=== PATIENT | male | born 1965 | race Caucasian/White ===

== ENCOUNTER 2017-06-16 16:30 | Emergency (ER) | payer MEDICAID ==
[~2017-06-16] VITALS: Ht 182.9 cm; Wt 95.0 kg
[~2017-06-16 16:30] MED LIST: LISI5TAB7 PO
[2017-06-16] MEDS ORDERED: LISI-167 PO (17:03)
[2017-06-16 17:49] VITALS: BP 165/104
== END 2017-06-16 17:54 | disposition home or self-care (01) ==
LOC: ED 17:46
DX: F15.10 Other stimulant abuse, uncomplicated (principal); Z72.9 Problem related to lifestyle, unspecified
CPT/HCPCS: 93005; 99283

== ENCOUNTER 2017-12-02 10:16 | Emergency (ER) | payer MEDICAID ==
[~2017-12-02] VITALS: Ht 182.9 cm; Wt 95.0 kg
[~2017-12-02 10:16] MED LIST changes: +LISI-167 PO
[2017-12-02] MEDS ORDERED: SODIUM CHLORIDE FLUSH 10ML SYR IVF ONE (11:00)
[2017-12-02] MEDS ORDERED: LORazepam 2 MG/ML, 1ML IVPush ONE ×2 (11:00→13:30)
[2017-12-02] MEDS ORDERED: ENALAPRILAT 1.25 MG/ML, 2ML IV ONE (11:00)
[2017-12-02] MEDS ORDERED: SODIUM CHLORIDE 0.9% 1,000ML IVBOLUS ONE (11:00)
[2017-12-02] MEDS ORDERED: THIAMINE 100 MG in SODIUM CHLORIDE 0.9% 50 ML IVPB ONE (11:00)
[2017-12-02] MEDS ORDERED: ENALAPRILAT 1.25 MG/ML, 2ML ONE (11:17)
[2017-12-02 11:24] LABS: BASOPHILS # (AUTO) 0.03 x10^3/uL (0-0.1); BASOPHILS % (AUTO) 0 % (0-1); EOSINOPHILS % (AUTO) 1 % (1-7); LYMPHOCYTES # (AUTO) 1.12 x10^3/uL (1-3.4); LYMPHOCYTES % (AUTO) 14 % (22-44); MD NO; MEAN CORPUSCULAR HGB CONC 34.5 g/dL (33.2-36.2); MEAN CORPUSCULAR VOLUME 95.8 fL (81-97); MEAN PLATELET VOLUME 9.2 fL (7.4-10.4); MONOCYTES # (AUTO) 0.51 x10^3/uL (0.2-0.8); MONOCYTES % (AUTO) 6 % (2-9); NEUTROPHILS # (AUTO) 6.45 x10^3/uL (1.8-6.8); NEUTROPHILS % (AUTO) 79 % (42-75); PLATELET COUNT 153 x10^3/uL (130-400); RED BLOOD COUNT 3.98 x10^6/uL (4.38-5.82); RED CELL DISTRIBUTION WIDTH 13.8 % (9.4-14.8)
[2017-12-02] MEDS ORDERED: LORazepam 2 MG/ML, 1ML ONE ×2 (11:32→13:18)
[2017-12-02 11:35] LABS: ALANINE AMINOTRANSFERASE 13 U/L (12-78); ALBUMIN 3.8 g/dL (3.4-5.0); ANION GAP 7 mmol/L (5-15); CALCIUM 8.7 mg/dL (8.5-10.1); CHLORIDE 108 mmol/L (98-107)
[2017-12-02 11:37] LABS: CREATININE 1.29 mg/dL (0.7-1.3)
[2017-12-02 11:38] LABS: ALKALINE PHOSPHATASE 72 U/L (45-117); BILIRUBIN,TOTAL 0.5 mg/dL (0.2-1.0); TOTAL PROTEIN 7.2 g/dL (6.4-8.2)
[2017-12-02] MEDS ORDERED: LABETALOL 5MG/ML, 20ML ONE (13:17)
[2017-12-02] MEDS ORDERED: LABETALOL 5MG/ML, 20ML IVPush ONE (13:30)
[2017-12-02] MEDS ORDERED: LORazepam 1MG TABLET ONE (13:54)
[2017-12-02] MEDS ORDERED: PLEASE ENTER ALLERGIES MC SCH (14:00)
[2017-12-02] MEDS ORDERED: LORazepam 1MG TABLET PO ONE (14:00)
[2017-12-02 14:08] VITALS: BP 170/95
== END 2017-12-02 14:14 | disposition home or self-care (01) ==
LOC: ED 10:56
DX: R56.9 Unspecified convulsions (principal); I10 Essential (primary) hypertension; F10.239 Alcohol dependence with withdrawal, unspecified
CPT/HCPCS: 36415; 80053; 80307; 83735; 85025; 93005; 96365; 96375; 96376; 99285; J2060; J3411; J7030

== ENCOUNTER 2018-09-04 13:18 | Emergency (ER) | payer MEDICAID ==
[~2018-09-04] VITALS: Ht 182.9 cm; Wt 103.1 kg
[2018-09-04 13:34] VITALS: BP 157/95
[2018-09-04 14:09] LABS: BASOPHILS # (AUTO) 0.03 x10^3/uL (0-0.1); BASOPHILS % (AUTO) 1 % (0-1); EOSINOPHILS % (AUTO) 3 % (1-7); LYMPHOCYTES # (AUTO) 2.04 x10^3/uL (1-3.4); LYMPHOCYTES % (AUTO) 30 % (22-44); MD NO; MEAN CORPUSCULAR HEMOGLOBIN 31.8 pg (27.5-34.5); MEAN CORPUSCULAR HGB CONC 34.3 g/dL (33.2-36.2); MEAN CORPUSCULAR VOLUME 92.6 fL (81-97); MEAN PLATELET VOLUME 9.8 fL (7.4-10.4); MONOCYTES # (AUTO) 0.47 x10^3/uL (0.2-0.8); MONOCYTES % (AUTO) 7 % (2-9); NEUTROPHILS % (AUTO) 59 % (42-75); PLATELET COUNT 172 x10^3/uL (130-400); RED BLOOD COUNT 4.46 x10^6/uL (4.38-5.82); RED CELL DISTRIBUTION WIDTH 13.9 % (9.4-14.8)
[2018-09-04] MEDS ORDERED: KETOROLAC 30 MG/1 ML IM ONE (14:30)
[2018-09-04] MEDS ORDERED: KETOROLAC 30 MG/1 ML ONE (14:32)
[2018-09-04] MEDS ORDERED: TRAZODONE (14:45)
[2018-09-04] MEDS ORDERED: HYDROXYZINE (14:45)
[2018-09-04] MEDS ORDERED: LEVOTHYROXINE (14:45)
[2018-09-04] MEDS ORDERED: TAMS0.4C2 PO (14:45)
[2018-09-04] MEDS ORDERED: PROPRANOLOL (14:45)
== END 2018-09-04 15:25 | disposition home or self-care (01) ==
LOC: ED 13:30
DX: M13.132 Monoarthritis, not elsewhere classified, left wrist (principal); M13.142 Monoarthritis, not elsewhere classified, left hand; M10.9 Gout, unspecified; I10 Essential (primary) hypertension
CPT/HCPCS: 36415; 73130; 84550; 85025; 96372; 99285; J1885

== ENCOUNTER 2018-09-21 18:01 | Emergency (ER) | payer MEDICAID ==
[~2018-09-21] VITALS: Ht 180.3 cm; Wt 99.0 kg
[~2018-09-21 18:01] MED LIST changes: +HYDROXYZINE; +LEVOTHYROXINE; +PROPRANOLOL; +TAMS0.4C2 PO; +TRAZODONE
[2018-09-21 18:37] LABS: BASOPHILS # (AUTO) 0.04 x10^3/uL (0-0.1); BASOPHILS % (AUTO) 1 % (0-1); EOSINOPHILS # (AUTO) 0.23 x10^3/uL (0-0.4); EOSINOPHILS % (AUTO) 3 % (1-7); LYMPHOCYTES # (AUTO) 2.69 x10^3/uL (1-3.4); LYMPHOCYTES % (AUTO) 37 % (22-44); MD NO; MEAN CORPUSCULAR HEMOGLOBIN 31.8 pg (27.5-34.5); MEAN CORPUSCULAR HGB CONC 34.4 g/dL (33.2-36.2); MEAN CORPUSCULAR VOLUME 92.5 fL (81-97); MEAN PLATELET VOLUME 10.4 fL (7.4-10.4); MONOCYTES # (AUTO) 0.73 x10^3/uL (0.2-0.8); MONOCYTES % (AUTO) 10 % (2-9); NEUTROPHILS # (AUTO) 3.58 x10^3/uL (1.8-6.8); NEUTROPHILS % (AUTO) 49 % (42-75); PLATELET COUNT 150 x10^3/uL (130-400); RED BLOOD COUNT 4.38 x10^6/uL (4.38-5.82); RED CELL DISTRIBUTION WIDTH 13.7 % (9.4-14.8)
[2018-09-21 18:45] LABS: ALANINE AMINOTRANSFERASE 20 U/L (12-78); ALBUMIN 4.8 g/dL (3.4-5.0); ANION GAP 10 mmol/L (5-15); CALCIUM 9.3 mg/dL (8.5-10.1); CHLORIDE 104 mmol/L (98-107); CREATININE 2.07 mg/dL (0.7-1.3)
[2018-09-21 18:47] LABS: ALKALINE PHOSPHATASE 72 U/L (45-117); BILIRUBIN,TOTAL 0.6 mg/dL (0.2-1.0); TOTAL PROTEIN 8.2 g/dL (6.4-8.2)
[2018-09-21 19:33] VITALS: BP 139/86
== END 2018-09-21 19:34 | disposition home or self-care (01) ==
LOC: ED 19:05
DX: R79.9 Abnormal finding of blood chemistry, unspecified (principal); Z00.01 Encounter for general adult medical examination with abnormal findings
CPT/HCPCS: 36415; 80053; 85025; 93005; 99285

== ENCOUNTER 2019-04-27 20:54 | Emergency (ER) | payer MEDICAID ==
[~2019-04-27] VITALS: Ht 182.9 cm; Wt 93.0 kg
--- NOTE | 2019-04-27 21:05 | NUR ---
SELVIN. REPORT RECEIVED FROM EMS. PT C/O DZY/LIGHT HEADED X 3 DAYS. PT STATES HE HAS SOME RED SPOTS ON FOREHEAD. PT DID CPR(MOUTH TO MOUTH RESUSCITATION) FOR HOMELESS FOR 4 DAYS AGO. PT DENIES ANY PAIN AT THIS TIME. ALL MONITORS IN PLACE. CALL LIGHT WITHIN REACH.
[2019-04-27] MEDS ORDERED: SODIUM CHLORIDE FLUSH 10ML SYR IVF ONE (21:30)
[2019-04-27] MEDS ORDERED: SODIUM CHLORIDE 0.9% 1,000ML IVBOLUS ONE (21:30)
--- NOTE | 2019-04-27 21:36 | NUR ---
NS INFUSING AT THIS TIME. EKG DONE BY EMT AT BEDSIDE.
[2019-04-27] MEDS ORDERED: NALT50TA PO (21:39)
[2019-04-27] MEDS ORDERED: ATOR-2 PO (21:39)
[2019-04-27] MEDS ORDERED: ALLO300T PO (21:40)
[2019-04-27 21:50] LABS: BASOPHILS # (AUTO) 0.02 x10^3/uL (0-0.1); BASOPHILS % (AUTO) 0 % (0-1); EOSINOPHILS % (AUTO) 3 % (1-7); LYMPHOCYTES # (AUTO) 2.96 x10^3/uL (1-3.4); LYMPHOCYTES % (AUTO) 44 % (22-44); MD NO; MEAN CORPUSCULAR HEMOGLOBIN 31.1 pg (27.5-34.5); MEAN CORPUSCULAR VOLUME 94.2 fL (81-97); MEAN PLATELET VOLUME 8.7 fL (7.4-10.4); MONOCYTES # (AUTO) 0.37 x10^3/uL (0.2-0.8); MONOCYTES % (AUTO) 5 % (2-9); NEUTROPHILS # (AUTO) 3.23 x10^3/uL (1.8-6.8); NEUTROPHILS % (AUTO) 48 % (42-75); PLATELET COUNT 185 x10^3/uL (130-400); RED BLOOD COUNT 4.64 x10^6/uL (4.38-5.82); RED CELL DISTRIBUTION WIDTH 13.4 % (9.4-14.8)
[2019-04-27 21:58] LABS: INTERNATIONAL NORMALIZED RATIO 1.07 (0.93-1.1); PROTHROMBIN TIME 11.2 Seconds (9.6-11.5)
[2019-04-27 21:59] LABS: ALANINE AMINOTRANSFERASE 23 U/L (12-78); ALBUMIN 3.8 g/dL (3.4-5.0); ANION GAP 6 mmol/L (5-15); CALCIUM 8.4 mg/dL (8.5-10.1); CHLORIDE 106 mmol/L (98-107)
[2019-04-27 22:01] LABS: ALKALINE PHOSPHATASE 85 U/L (45-117); BILIRUBIN,TOTAL 0.4 mg/dL (0.2-1.0); TOTAL PROTEIN 6.8 g/dL (6.4-8.2)
--- NOTE | 2019-04-27 22:15 | NUR ---
PT AMB TO BR WITH STEADY GAIT.
[2019-04-27 23:56] VITALS: BP 117/73
--- NOTE | 2019-04-27 23:57 | NUR ---
PT GIVEN DC INSTRUCTIONS. PT'S AOX4. RESPS EVEN AND UNLABORED. NO ACUTE DISTRESS AT DC.
== END 2019-04-27 23:58 | disposition home or self-care (01) ==
LOC: ED 21:51
DX: F10.220 Alcohol dependence with intoxication, uncomplicated (principal); R42 Dizziness and giddiness; I10 Essential (primary) hypertension; F17.200 Nicotine dependence, unspecified, uncomplicated; Z72.9 Problem related to lifestyle, unspecified; Y90.9 Presence of alcohol in blood, level not specified
CPT/HCPCS: 36415; 70450; 80053; 80307; 85025; 85610; 85730; 93005; 96360; 99284; J7030

== ENCOUNTER 2019-07-07 21:30 | Emergency (ER) | payer MEDICAID ==
[~2019-07-07] VITALS: Ht 182.9 cm; Wt 97.3 kg
[2019-07-07 21:32] VITALS: BP 183/110
== END 2019-07-07 23:41 | disposition home or self-care (01) ==
LOC: ED 22:48
DX: S93.602A Unspecified sprain of left foot, initial encounter (principal); I10 Essential (primary) hypertension; X50.1XXA Overexertion from prolonged static or awkward postures, initial encounter; Y93.89 Activity, other specified; Y92.410 Unspecified street and highway as the place of occurrence of the external cause; Y99.8 Other external cause status
CPT/HCPCS: 99283

== ENCOUNTER 2020-04-28 19:06 | Emergency (ER) | payer MEDICAID ==
[~2020-04-28] VITALS: Ht 182.9 cm; Wt 95.5 kg
[~2020-04-28 19:06] MED LIST changes: +ALLO300T PO; +ATOR-2 PO; +NALT50TA PO
[2020-04-28 19:14] VITALS: BP 130/54
== END 2020-04-28 20:07 | disposition home or self-care (01) ==
LOC: ED 19:15
DX: F10.129 Alcohol abuse with intoxication, unspecified (principal); I10 Essential (primary) hypertension; M19.90 Unspecified osteoarthritis, unspecified site; Y90.9 Presence of alcohol in blood, level not specified
CPT/HCPCS: 99283

== ENCOUNTER 2020-11-30 06:51 | Emergency (ER) | payer MEDICAID ==
[~2020-11-30] VITALS: Ht 182.9 cm; Wt 99.4 kg
[2020-11-30 06:55] VITALS: BP 141/93
== END 2020-11-30 07:37 | disposition home or self-care (01) ==
LOC: ED 07:25
DX: H60.313 Diffuse otitis externa, bilateral (principal); H60.13 Cellulitis of external ear, bilateral; R09.81 Nasal congestion; I10 Essential (primary) hypertension; M19.90 Unspecified osteoarthritis, unspecified site
CPT/HCPCS: 99283

== ENCOUNTER 2020-12-03 16:16 | Emergency (ER) | payer MEDICAID ==
[~2020-12-03] VITALS: Ht 185.4 cm; Wt 95.4 kg
--- NOTE | 2020-12-03 17:30 | NUR ---
BP CUFF, PULSE OX IN PLACE. VSS/UPDATED IN COMPUTER.
--- NOTE | 2020-12-03 17:46 | NUR ---
DR WANG IN TO SEE PT.
--- NOTE | 2020-12-03 18:08 | NUR ---
REPORT TO ELIANA, TRANSFER OF CARE AT THIS TIME.
[2020-12-03 18:18] LABS: MEAN CORPUSCULAR HEMOGLOBIN 32.8 pg (27.5-34.5); PLATELET COUNT 339 x10^3/uL (130-400); RED BLOOD COUNT 3.51 x10^6/uL (4.38-5.82); RED CELL DISTRIBUTION WIDTH 14.3 % (9.4-14.8)
[2020-12-03 18:25] LABS: ALBUMIN 2.4 g/dL (3.4-5.0); ANION GAP 7 mmol/L (5-15); CALCIUM 9.2 mg/dL (8.5-10.1); CHLORIDE 106 mmol/L (98-107); CREATININE 1.14 mg/dL (0.7-1.3); SALICYLATE LEVEL 2.6 mg/dL (2.8-20.0)
[2020-12-03 19:11] LABS: MD YES
[2020-12-03 19:14] LABS: EOS#(MANUAL) 0.14 x10^3/uL (0.0-0.4); EOS% (MANUAL) 1 % (1-7); LYMPH#(MANUAL) 2.74 x10^3/uL (1-3.4); LYMPHS% (MANUAL) 20 % (22-44); METAMYELOCYTES# (MANUAL) 0.14 x10^3/uL (0-0); METAMYELOCYTES% (MANUAL) 1 % (0-1); MONOS#(MANUAL) 0.14 x10^3/uL (0.3-2.7); MONOS% (MANUAL) 1 % (2-9); SEG#(MANUAL) 10.55 x10^3/uL (1.8-6.8); SEGS% (MANUAL) 77 % (42-75)
[2020-12-03 19:18] LABS: <PLATELET ESTIMATE> ADEQUATE; <PLT MORPHOLOGY> NORMAL PLT MORPH; <RBC MORPHOLOGY> NORMAL
[2020-12-03 19:20] VITALS: BP 138/80
== END 2020-12-03 20:22 | disposition home or self-care (01) ==
LOC: ED 18:13
DX: H66.003 Acute suppurative otitis media without spontaneous rupture of ear drum, bilateral (principal); H70.003 Acute mastoiditis without complications, bilateral; H91.92 Unspecified hearing loss, left ear; I10 Essential (primary) hypertension; M19.90 Unspecified osteoarthritis, unspecified site; F17.210 Nicotine dependence, cigarettes, uncomplicated
CPT/HCPCS: 36415; 70480; 80048; 80329; 82040; 85025; 99284; 99406; G0480

== ENCOUNTER → 2021-01-21 | Outpatient (CLI) | payer MEDICAID ==
[~2021-01-21] MED LIST changes: +LEVO50TA5 PO
== END | disposition home or self-care (01) ==
LOC: STAR 09:52
PROVIDERS: ATTEND Otolaryngology
DX: Z20.822 Contact with and (suspected) exposure to COVID-19 (principal); H66.23 Chronic atticoantral suppurative otitis media, bilateral; H90.A31 Mixed conductive and sensorineural hearing loss, unilateral, right ear with restricted hearing on the contralateral side; R49.0 Dysphonia
CPT/HCPCS: U0003

== ENCOUNTER 2021-01-27 05:54 | Day surgery (SDC) | payer MEDICAID ==
[~2021-01-27] VITALS: Ht 185.4 cm; Wt 97.0 kg
[2021-01-27] MEDS ORDERED: CHLORHEXIDINE 15 ML UDC ONE (06:39)
[2021-01-27] MEDS ORDERED: OXYMETAZOLINE NASAL SPRAY 0.05%,30ML ONE (06:46)
[2021-01-27 06:52] VITALS: BP 154/94
[2021-01-27] MEDS ORDERED: budesonide PO (06:58)
[2021-01-27] MEDS ORDERED: LACTATED RINGERS 1,000 ML IV SCH (07:00)
[2021-01-27] MEDS ORDERED: CHLORHEXIDINE 15 ML UDC MM ONE (07:00)
[2021-01-27] MEDS ORDERED: REMIFENTANIL 2 MG ONE (07:19)
[2021-01-27] MEDS ORDERED: PROPOFOL 50 ML ONE ×2 (07:20→08:00)
[2021-01-27] MEDS ORDERED: MIDAZOLAM 1 MG/ML, 2ML ONE ×2 (07:28→08:18)
[2021-01-27] MEDS ORDERED: FENTANYL PF 250 MCG/5ML ONE (07:28)
[2021-01-27] MEDS ORDERED: KETAMINE 10 MG/ML, 20ML ONE (07:32)
[2021-01-27] MEDS ORDERED: ESMOLOL 100 MG/10 ML ONE (08:02)
[2021-01-27] MEDS ORDERED: DEXMEDETOMIDINE 200 MCG/2 ML ONE (08:09)
[2021-01-27] MEDS ORDERED: OXYMETAZOLINE NASAL SPRAY 0.05%,30ML NAS ONE (08:12)
[2021-01-27] MEDS ORDERED: LIDOCAINE 2% VISCOUS 15 ML UDC MM ONE (08:15)
[2021-01-27] MEDS ORDERED: SUGAMMADEX 200 MG/2 ML IVPush ONE (08:18)
[2021-01-27] MEDS ORDERED: ONDANSETRON 2MG/ML, 2ML ONE ×2 (08:28→08:29)
[2021-01-27] MEDS ORDERED: ROCURONIUM 10MG/ML,5ML ONE (08:28)
[2021-01-27] MEDS ORDERED: PROPOFOL 10 MG/ML, 20ML ONE (08:28)
[2021-01-27] MEDS ORDERED: DEXAMETHASONE 4 MG/ML, 1ML ONE ×2 (08:29)
[2021-01-27] MEDS ORDERED: ACETAMINOPHEN 650 MG/20.3 ML UDC ONE (08:58)
[2021-01-27] MEDS ORDERED: ACETAMINOPHEN 325 MG TABLET PO PRN (09:00)
[2021-01-27] MEDS ORDERED: FENTANYL PF 100 MCG/2ML IV PRN (09:00)
[2021-01-27] MEDS ORDERED: PROMETHAZINE 25 MG/ML, 1ML IVPush PRN (09:00)
[2021-01-27] MEDS ORDERED: hydrALAzine 20 MG/ML, 1ML IV PRN (09:00)
[2021-01-27] MEDS ORDERED: HALOPERIDOL 5 MG/ML IV PRN (09:00)
[2021-01-27] MEDS ORDERED: LABETALOL 5MG/ML, 20ML IV PRN (09:00)
[2021-01-27] MEDS ORDERED: DIPHENHYDRAMINE 50 MG/ML, 1ML IVPush PRN (09:00)
== END 2021-01-27 10:05 | disposition home or self-care (01) ==
LOC: OUT 05:54
PROVIDERS: ATTEND Otolaryngology
DX: J38.3 Other diseases of vocal cords (principal); J31.1 Chronic nasopharyngitis; R49.0 Dysphonia; H66.23 Chronic atticoantral suppurative otitis media, bilateral; H90.A31 Mixed conductive and sensorineural hearing loss, unilateral, right ear with restricted hearing on the contralateral side; I10 Essential (primary) hypertension; E78.5 Hyperlipidemia, unspecified; E03.9 Hypothyroidism, unspecified; F17.200 Nicotine dependence, unspecified, uncomplicated; Z79.890 Hormone replacement therapy; Z79.899 Other long term (current) drug therapy
CPT/HCPCS: 31536; 42804; 88305; 88341; 88342; J1100; J2250; J2405; J2704; J3010; J7120

== ENCOUNTER 2021-03-17 05:52 | Day surgery (SDC) | payer OTHER ==
[~2021-03-17] VITALS: Ht 182.9 cm; Wt 102.0 kg
[~2021-03-17 05:52] MED LIST changes: +budesonide PO
[2021-03-17] MEDS ORDERED: CHLORHEXIDINE 15 ML UDC ONE (06:36)
[2021-03-17] MEDS ORDERED: OXYMETAZOLINE NASAL SPRAY 0.05%,30ML ONE (06:58)
[2021-03-17] MEDS ORDERED: EPINEPHRINE TOPICAL SOLN 1 MG/ML, 30ML ONE (06:58)
[2021-03-17] MEDS ORDERED: EPINEPHRINE 1 MG/ML, 1ML ONE (06:58)
[2021-03-17] MEDS ORDERED: LIDOCAINE/PF 1%, 30ML ONE (06:58)
[2021-03-17] MEDS ORDERED: FLUORESCEIN SODIUM 500 MG/5 ML ONE (06:58)
[2021-03-17] MEDS ORDERED: BACITRACIN 50,000 UNIT ONE (06:58)
[2021-03-17] MEDS ORDERED: BACITRACIN ZINC OINT 500U/GM, 0.9 GM ONE (06:58)
[2021-03-17] MEDS ORDERED: BACITRACIN OINT 500U/GM, 15 GM ONE (06:59)
[2021-03-17] MEDS ORDERED: CHLORHEXIDINE 15 ML UDC PO ONE (07:00)
[2021-03-17] MEDS ORDERED: LACTATED RINGERS 1,000 ML IV SCH (07:00)
[2021-03-17] MEDS ORDERED: MIDAZOLAM 1 MG/ML, 2ML ONE (07:03)
[2021-03-17] MEDS ORDERED: ROCURONIUM 10MG/ML,5ML ONE (07:04)
[2021-03-17] MEDS ORDERED: PROPOFOL 10 MG/ML, 20ML ONE (07:04)
[2021-03-17] MEDS ORDERED: ONDANSETRON 2MG/ML, 2ML ONE (07:04)
[2021-03-17] MEDS ORDERED: CEFAZOLIN 1,000 MG ONE (07:04)
[2021-03-17] MEDS ORDERED: FENTANYL PF 250 MCG/5ML ONE (07:04)
[2021-03-17] MEDS ORDERED: SUGAMMADEX 200 MG/2 ML IVPush ONE (07:04)
[2021-03-17] MEDS ORDERED: PROPOFOL 50 ML ONE (07:08)
[2021-03-17 07:13] LABS: AMPHETAMINE SCREEN, URINE Positive (Negative); BARBITURATE SCREEN, URINE Negative (Negative); BENZODIAZEPINE SCREEN, URINE Positive (Negative); CANNABINOID SCREEN, URINE Positive (Negative); COCAINE SCREEN, URINE Negative (Negative); METHADONE SCREEN, URINE Negative (Negative); OPIATE SCREEN, URINE Negative (Negative)
[2021-03-17 07:21] LABS: ALBUMIN 4.1 g/dL (3.4-5.0); ANION GAP 13 mmol/L (5-15); CALCIUM 9.4 mg/dL (8.5-10.1); CHLORIDE 108 mmol/L (98-107)
[2021-03-17 07:23] VITALS: BP 187/114
[2021-03-17 07:25] LABS: ALANINE AMINOTRANSFERASE 49 U/L (12-78); ALKALINE PHOSPHATASE 68 U/L (45-117); BILIRUBIN,TOTAL 0.2 mg/dL (0.2-1.0); CREATININE 1.26 mg/dL (0.7-1.3); TOTAL PROTEIN 7.5 g/dL (6.4-8.2)
== END 2021-03-17 07:50 | disposition home or self-care (01) ==
LOC: OR 05:52
PROVIDERS: ATTEND Otolaryngology
DX: C11.3 Malignant neoplasm of anterior wall of nasopharynx (principal); Z53.8 Procedure and treatment not carried out for other reasons; I10 Essential (primary) hypertension; Z20.822 Contact with and (suspected) exposure to COVID-19; Z79.899 Other long term (current) drug therapy
CPT/HCPCS: 36415; 80053; 80307; 87635; J0690; J2405; J2704; J0171; J2250; J3010

== ENCOUNTER 2021-03-24 05:26 | Day surgery (SDC) | payer MEDICAID ==
[~2021-03-24] VITALS: Ht 182.9 cm; Wt 104.6 kg
[2021-03-24] MEDS ORDERED: EPINEPHRINE TOPICAL SOLN 1 MG/ML, 30ML ONE (06:12)
[2021-03-24] MEDS ORDERED: BACITRACIN OINT 500U/GM, 15 GM ONE (06:12)
[2021-03-24] MEDS ORDERED: FLUORESCEIN SODIUM 500 MG/5 ML ONE (06:12)
[2021-03-24] MEDS ORDERED: LIDOCAINE/PF 1%, 30ML ONE (06:12)
[2021-03-24] MEDS ORDERED: EPINEPHRINE 1 MG/ML, 1ML ONE (06:13)
[2021-03-24] MEDS ORDERED: OXYMETAZOLINE NASAL SPRAY 0.05%,30ML ONE (06:13)
[2021-03-24 06:16] VITALS: BP 127/85
[2021-03-24] MEDS ORDERED: CHLORHEXIDINE 15 ML UDC PO ONE (06:30)
[2021-03-24] MEDS ORDERED: LACTATED RINGERS 1,000 ML IV SCH (06:30)
[2021-03-24] MEDS ORDERED: DEXMEDETOMIDINE 200 MCG/2 ML ONE (07:10)
[2021-03-24] MEDS ORDERED: FENTANYL PF 250 MCG/5ML ONE (07:12)
[2021-03-24] MEDS ORDERED: MIDAZOLAM 1 MG/ML, 2ML ONE (07:12)
[2021-03-24] MEDS ORDERED: HYDROmorphone 1 MG/ML, 1ML INJ ONE (07:12)
[2021-03-24] MEDS ORDERED: HYDROmorphone 1 MG/ML, 1ML INJ IVPush PRN (08:00)
[2021-03-24] MEDS ORDERED: OXYcodone 5 MG/5 ML ORAL.SOL UDC PO PRN (08:00)
[2021-03-24] MEDS ORDERED: METOCLOPRAMIDE 5 MG/ML, 2ML IVPush PRN (08:00)
[2021-03-24] MEDS ORDERED: EPHEDRINE 50 MG/ML, 1ML IVPush PRN (08:00)
[2021-03-24] MEDS ORDERED: hydrALAzine 20 MG/ML, 1ML IV PRN (08:00)
[2021-03-24] MEDS ORDERED: LABETALOL 5MG/ML, 20ML IV PRN (08:00)
[2021-03-24] MEDS ORDERED: ONDANSETRON 2MG/ML, 2ML IVPush PRN (08:00)
[2021-03-24] MEDS ORDERED: ACETAMINOPHEN 325 MG TABLET PO PRN (08:00)
[2021-03-24] MEDS ORDERED: KETOROLAC 30 MG/1 ML IV PRN (08:00)
[2021-03-24] MEDS ORDERED: HALOPERIDOL 5 MG/ML IV PRN (08:00)
[2021-03-24] MEDS ORDERED: DIPHENHYDRAMINE 50 MG/ML, 1ML IVPush PRN (08:00)
[2021-03-24] MEDS ORDERED: PROMETHAZINE 25 MG/ML, 1ML IVPush PRN (08:00)
[2021-03-24] MEDS ORDERED: FENTANYL PF 100 MCG/2ML IV PRN (08:00)
[2021-03-24] MEDS ORDERED: DIAZEPAM 5 MG/ML, 2ML IVPush PRN (08:00)
[2021-03-24] MEDS ORDERED: METOPROLOL 1 MG/ML, 5ML IV PRN (08:00)
[2021-03-24] MEDS ORDERED: ACETAMINOPHEN 650 MG/20.3 ML UDC ONE (08:42)
[2021-03-24] MEDS ORDERED: PROPOFOL 10 MG/ML, 20ML ONE (16:11)
[2021-03-24] MEDS ORDERED: DEXAMETHASONE 4 MG/ML, 1ML ONE (16:11)
[2021-03-24] MEDS ORDERED: PROPOFOL 10 MG/ML, 50ML ONE (16:11)
[2021-03-24] MEDS ORDERED: SUGAMMADEX 200 MG/2 ML IVPush ONE (16:11)
[2021-03-24] MEDS ORDERED: ONDANSETRON 2MG/ML, 2ML ONE (16:11)
[2021-03-24] MEDS ORDERED: CEFAZOLIN 1,000 MG ONE (16:11)
[2021-03-24] MEDS ORDERED: ROCURONIUM 10MG/ML,5ML ONE (16:11)
== END 2021-03-24 09:25 | disposition home or self-care (01) ==
LOC: OUT 05:26
PROVIDERS: ATTEND Otolaryngology
DX: J39.2 Other diseases of pharynx (principal); J31.1 Chronic nasopharyngitis; C11.3 Malignant neoplasm of anterior wall of nasopharynx; I10 Essential (primary) hypertension; E03.9 Hypothyroidism, unspecified; F19.10 Other psychoactive substance abuse, uncomplicated; F17.210 Nicotine dependence, cigarettes, uncomplicated; Z79.890 Hormone replacement therapy; Z79.899 Other long term (current) drug therapy
CPT/HCPCS: 31237; 88305; J0171; J0690; J1100; J1170; J2250; J2405; J2704; J3010; J7120

== ENCOUNTER 2021-08-05 16:19 | Inpatient (IN) | payer MEDICAID ==
[~2021-08-05] VITALS: Ht 182.9 cm; Wt 103.7 kg
[2021-08-05 17:04] LABS: ALANINE AMINOTRANSFERASE 24 U/L (12-78); ALBUMIN 3.6 g/dL (3.4-5.0); ANION GAP 13 mmol/L (5-15); CALCIUM 8.2 mg/dL (8.5-10.1); CHLORIDE 105 mmol/L (98-107); CREATININE 9.66 mg/dL (0.7-1.3)
[2021-08-05 17:05] LABS: BASOPHILS % (AUTO) 1 % (0-1); EOSINOPHILS % (AUTO) 3 % (1-7); LYMPHOCYTES % (AUTO) 19 % (22-44); MEAN CORPUSCULAR HEMOGLOBIN 30.6 pg (27.5-34.5); MEAN CORPUSCULAR HGB CONC 34.4 g/dL (33.2-36.2); MONOCYTES % (AUTO) 8 % (2-9); NEUTROPHILS % (AUTO) 69 % (42-75); PLATELET COUNT 187 x10^3/uL (130-400); RED BLOOD COUNT 3.84 x10^6/uL (4.38-5.82); RED CELL DISTRIBUTION WIDTH 13.9 % (9.4-14.8)
[2021-08-05 17:07] LABS: ALKALINE PHOSPHATASE 81 U/L (45-117); BILIRUBIN,TOTAL 0.3 mg/dL (0.2-1.0); TOTAL PROTEIN 7.2 g/dL (6.4-8.2)
--- NOTE | 2021-08-05 18:16 | NUR ---
PT AMBULATED TO RESTROOM WITH STEADY GAIT TO PROVIDE URINE SAMPLE. UA COLLECTED AND SENT TO LAB. POST VOID RESIDUAL BLADDER SCAN SHOWS ZERO ML. PT STATES HE DOESN'T FEEL LIKE THERE IS URINE LEFT, DENIES PAIN DURING SCAN.
[2021-08-05] MEDS ORDERED: SODIUM CHLORIDE FLUSH 10ML SYR IVF ONE (18:30)
[2021-08-05 18:31] LABS: MICROSCOPIC AUTO
--- NOTE | 2021-08-05 18:50 | NUR ---
REPORT GIVEN TO SAVANA VALLE. TRANSFER OF CARE.
--- NOTE | 2021-08-05 18:51 | NUR ---
REPORT RECIVED FROM LEONARD WASSERMAN
[2021-08-05] MEDS ORDERED: SODIUM CHLORIDE 0.9% 1,000 ML IV ONE (19:00)
[2021-08-05] MEDS ORDERED: SODIUM CHLORIDE 0.9% 1,000ML IVBOLUS ONE (19:00)
[2021-08-05] MEDS ORDERED: SODIUM CHLORIDE FLUSH 10ML SYR IVF PRN (19:00)
--- NOTE | 2021-08-05 19:34 | NUR ---
HOSPITALIST AT BEDSIDE FOR ADMIT AT THIS TIME
[2021-08-05] MEDS ORDERED: ACETAMINOPHEN 325 MG TABLET PO PRN (20:00)
[2021-08-05] MEDS ORDERED: BISACODYL 10 MG SUPP PR PRN (20:00)
[2021-08-05] MEDS ORDERED: hydrALAzine 20 MG/ML, 1ML IVPush PRN (20:00)
[2021-08-05] MEDS ORDERED: POLYETHYLENE GLYCOL 17 GM PACKET PO PRN (20:00)
[2021-08-05] MEDS ORDERED: ONDANSETRON 2MG/ML, 2ML IVPush PRN (20:00)
[2021-08-05] MEDS: SODIUM CHLORIDE 0.9% 1,000 ML IV SCH (20:00)
--- NOTE | 2021-08-05 20:21 | NUR ---
Patient resting on ADARSH scales at this time, will continue to monitor.
--- NOTE | 2021-08-05 21:06 | NUR ---
Patient resting on gurney, notified need urine sample, patient given water and urinal. stated he would call when he urinates.
--- NOTE | 2021-08-05 22:19 | NUR ---
Patient transfered to hospital bed.
[2021-08-05 22:39] LABS: CHLORIDE,URINE RANDOM 12 mmol/L; POTASSIUM,URINE RANDOM 13 mmol/L; SODIUM,URINE RANDOM 47 mmol/L
--- NOTE | 2021-08-06 00:01 | NUR ---
Report given to LEONARD Alvarez. Patient moved to room 10.
[2021-08-06] MEDS: SODIUM CHLORIDE 0.9% 1,000 ML IV SCH ×3 (01:00→20:23)
[2021-08-06] MEDS ORDERED: HEPARIN 5,000 UNITS/ML, 1ML ONE ×3 (01:07→17:19)
[2021-08-06] MEDS: HEPARIN 5,000 UNITS/ML, 1ML SQ SCH ×3 (01:18→17:36)
[2021-08-06 01:25] VITALS: BP 98/58
[2021-08-06 05:13] LABS: BASOPHILS % (AUTO) 1 % (0-1); EOSINOPHILS % (AUTO) 4 % (1-7); LYMPHOCYTES % (AUTO) 31 % (22-44); MEAN CORPUSCULAR HEMOGLOBIN 31.3 pg (27.5-34.5); MEAN CORPUSCULAR HGB CONC 35.3 g/dL (33.2-36.2); MONOCYTES % (AUTO) 10 % (2-9); NEUTROPHILS % (AUTO) 55 % (42-75); PLATELET COUNT 152 x10^3/uL (130-400); RED BLOOD COUNT 3.54 x10^6/uL (4.38-5.82); RED CELL DISTRIBUTION WIDTH 13.8 % (9.4-14.8)
[2021-08-06 05:23] LABS: ANION GAP 8 mmol/L (5-15); CALCIUM 8.1 mg/dL (8.5-10.1); CHLORIDE 111 mmol/L (98-107); CREATININE 6.26 mg/dL (0.7-1.3)
[2021-08-06] MEDS ORDERED: ACETAMINOPHEN 325 MG TABLET PO PRN (07:30)
[2021-08-06 08:00] VITALS: BP 109/69
--- NOTE | 2021-08-06 08:42 | NUR ---
TASK RN NOTE: AM MEDS REQUESTED FROM PHARMACY.
[2021-08-06] MEDS ORDERED: SENNA/DOCUSATE TABLET ONE (10:14)
[2021-08-06] MEDS ORDERED: TAMSULOSIN 0.4 MG CAP.ER.24H ONE (10:14)
[2021-08-06] MEDS: SENNA/DOCUSATE TABLET PO SCH (10:32)
[2021-08-06] MEDS: TAMSULOSIN 0.4 MG CAP.ER.24H PO SCH (10:33)
[2021-08-06] MEDS: LEVOTHYROXINE 50 MCG TABLET PO SCH (10:33)
[2021-08-06 14:00] VITALS: BP 104/70
--- NOTE | 2021-08-06 14:45 | NUR ---
Melinda thakkar in ED - 08/06/21 at 1446 by CITLALY TASK RN: PT SMOKING CIGGARETTE IN BR. EDUCATED ON INAPPROPRIATE BEHAVIOR. SECURITY CALLED.
--- NOTE | 2021-08-06 14:46 | NUR ---
TASK RN: PT SMOKING CIGGARETTE IN BR. EDUCATED ON INAPPROPRIATE BEHAVIOR. SECURITY CALLED.
[2021-08-06 19:39] VITALS: BP 118/73
[2021-08-06] MEDS: NICOTINE 14MG/24 HR PATCH.TD24 TD SCH (20:44)
[2021-08-07 00:33] VITALS: BP 116/67
[2021-08-07] MEDS: HEPARIN 5,000 UNITS/ML, 1ML SQ SCH ×3 (00:58→17:10)
[2021-08-07] MEDS: SODIUM CHLORIDE 0.9% 1,000 ML IV SCH (06:03)
[2021-08-07 06:39] LABS: ANION GAP 6 mmol/L (5-15); CALCIUM 8.3 mg/dL (8.5-10.1); CHLORIDE 115 mmol/L (98-107); CREATININE 1.97 mg/dL (0.7-1.3)
[2021-08-07 07:08] VITALS: BP 149/87
[2021-08-07] MEDS: LEVOTHYROXINE 50 MCG TABLET PO SCH (09:20)
[2021-08-07] MEDS: TAMSULOSIN 0.4 MG CAP.ER.24H PO SCH (09:20)
[2021-08-07] MEDS: SENNA/DOCUSATE TABLET PO SCH (09:21)
[2021-08-07 12:01] VITALS: BP 110/67
[2021-08-07 19:09] VITALS: BP 149/83
[2021-08-07] MEDS: NICOTINE 14MG/24 HR PATCH.TD24 TD SCH (19:59)
[2021-08-08] MEDS: HEPARIN 5,000 UNITS/ML, 1ML SQ SCH ×2 (00:55→08:30)
[2021-08-08 01:00] VITALS: BP 122/81
[2021-08-08 06:34] VITALS: BP 116/69
[2021-08-08 07:06] LABS: ANION GAP 4 mmol/L (5-15); CALCIUM 8.9 mg/dL (8.5-10.1); CHLORIDE 116 mmol/L (98-107); CREATININE 1.23 mg/dL (0.7-1.3)
[2021-08-08] MEDS: TAMSULOSIN 0.4 MG CAP.ER.24H PO SCH (08:29)
[2021-08-08] MEDS: LEVOTHYROXINE 50 MCG TABLET PO SCH (08:30)
[2021-08-08] MEDS: SENNA/DOCUSATE TABLET PO SCH (08:30)
== END 2021-08-08 10:00 | disposition home or self-care (01) | DRG 683 ==
LOC: ED 18:19 → EDIP 19:44 → 4WST 08-06 19:31
PROVIDERS: ADMIT Family Medicine; ATTEND Internal Medicine
DX: N17.9 Acute kidney failure, unspecified (principal); F10.139 Alcohol abuse with withdrawal, unspecified; R57.9 Shock, unspecified; F17.210 Nicotine dependence, cigarettes, uncomplicated; N40.0 Benign prostatic hyperplasia without lower urinary tract symptoms; E78.5 Hyperlipidemia, unspecified; I10 Essential (primary) hypertension; F12.10 Cannabis abuse, uncomplicated; F15.10 Other stimulant abuse, uncomplicated; D64.9 Anemia, unspecified; E03.9 Hypothyroidism, unspecified; Y90.9 Presence of alcohol in blood, level not specified; E66.9 Obesity, unspecified
CPT/HCPCS: 36415; 71045; 76770; 80048; 80053; 81001; 82436; 82550; 82570; 84133; 84156; 84300; 85025; 87040; 93005; 93306; 93880; 99285; G0378; J1644; J7030